=== PATIENT | female | born 1945 | race African-American/Black ===

== ENCOUNTER 2017-06-29 14:19 | Emergency (ER) | payer MEDICARE ==
[2017-06-29] MEDS ORDERED: Hydrochlorothiazide 25 MG TAB ONE (15:30)
[2017-06-29] MEDS ORDERED: Metoprolol Tartrate 50 MG TAB ONE (15:30)
[2017-06-29] MEDS ORDERED: Lisinopril 10 MG TAB ONE ×2 (15:30→15:31)
[2017-06-29] MEDS ORDERED: Clopidogrel Bisulfate 75 MG TAB ONE (15:31)
== END 2017-06-29 15:50 | disposition home or self-care (01) ==
LOC: MADERS 14:19
DX: Z76.0 Encounter for issue of repeat prescription (principal); E78.5 Hyperlipidemia, unspecified; F17.220 Nicotine dependence, chewing tobacco, uncomplicated; I10 Essential (primary) hypertension; Z79.82 Long term (current) use of aspirin; Z79.899 Other long term (current) drug therapy
CPT/HCPCS: 99281